=== PATIENT | male | born 1985 | race Two or more races ===

== ENCOUNTER 2024-09-30 12:32 | Emergency (ER) | payer MEDICAID, SELFPAY ==
--- NOTE | 2024-09-30 12:37 | EDNOTE_ITS ---
ED Extremity Problem RME/HPI General Stated complaint: RT KNEE PAIN Time Seen by Provider: 09/30/24 12:37 Arrival date/time: 09/30/24 12:32 RME / HPI RME / HPI Narrative: This section includes all my notes and documentations, including HPI, PE, and ED course.? Jimmie Aragon MD HPI: 39-year-old male here to be evaluated with right knee injury just prior to arrival. While getting up in a sitting position on floor, he heard and felt a right knee popping sensation. And he cannot bear weight and reports pain and swelling. No other complaints. ROS: All negative except as documented in HPI. Physical Exam: General:? Alert and oriented.??In obvious pain. Eyes:? Conjunctivae and lids clear.?? ENT:? No nasal congestion.?? Neck:? Supple.?? Lungs:? No respiratory distress.?? Legs:? No clubbing, cyanosis, edema. Skin:? Warm and dry.?? Neuro:? Alert and oriented X 3.?? Right Knee: Equivocal bony tenderness. Moderate edema. Limited range of motion due to pain. I reviewed all diagnostic test results. My interpretation of the knee x-rays is no acute fracture. At this point, diagnoses include?right knee sprain. Treatment here included?knee immobilizer and crutches and ibuprofen and two Tylenol #3 and lidocaine patch. Recommended more outpatient care. Based on my best medical judgment, made decision no further evaluation or treatment indicated at this time.? Patient understands and agrees to the discharge instructions customized and printed, see below. Discharge Instructions from Dr. Aragon: --After evaluation, there is no evidence of any broken bone. --You sprained your knee.? This means small tears to your soft structures, such as ezyiprm-jyuwyei-sozgwtgcs-cartilage.? --To help the healing process, minimal weight bearing (knee immobilizer and crutches) and elevate above waist level for 3 days as much as possible.?? --Apply ice for 20 minutes every 2-3 hours today and tomorrow.? --Take Ibuprofen 800 mg every 6-8 hours today and tomorrow to help decrease swelling then as needed.? Lidocaine patches and Tylenol with codeine as needed. --Most importantly, see a private doctor on 10/01/2024 for recheck and further care. If you are not better, you will need more care not available here in the ER--such as MRI imaging, bone scan, physical therapy, and a referral to see a specialist.? To make sure you don't have major tears needing surgery--cannot see big tears on x-rays.?? --Seek immediate medical care with any concerns.?? Jimmie Aragon MD Related Data Home Medications ?Medication ?Instructions ?Recorded ?Confirmed buspirone 15 mg tablet 15 mg PO BID 06/15/18 fluoxetine 40 mg capsule 40 mg PO QDAY 06/15/18 Previous Rx's ?Medication ?Instructions ?Recorded albuterol sulfate 90 mcg/actuation 2 puff inhalation Q6H PRN 06/15/18 aerosol inhaler (ProAir HFA) shortness of breath #8.5 grams acetaminophen 300 mg-codeine 30 mg 2 tab PO TID PRN pain #20 tabs 09/30/24 tablet ibuprofen 800 mg tablet 800 mg PO Q8H PRN pain #30 tabs 09/30/24 lidocaine 5 % topical patch 2 patch topical QDAY PRN pain #30 09/30/24 (Lidoderm) ea Allergies Allergy/AdvReac Type Severity Reaction Status Date / Time No Known Allergies Allergy Verified 05/13/19 21:55 Review of Systems Review of Systems Systems Reviewed: All systems reviewed, normal except as documented Past Medical History Past Medical History CARDIAC: Negative Congestive Heart Failure RESPIRATORY: Negative Chronic Obstructive Pulmonary Disease (COPD) GENITOURINARY: Negative Renal Disease ENDOCRINE: Negative Diabetes Mellitus Type 1 or Diabetes Mellitus Type 2 Social History SMOKING STATUS: Never smoker ED Exam Narrative Physical exam: As noted in HPI Course Quality Measures none Orders Category Date Time Status Apply knee immobilizer NOW Care 09/30/24 14:58 Active Crutches .NOW Care 09/30/24 14:58 Active Miscellaneous Nursing Order NOW Care 09/30/24 12:39 Active XR knee RT 3V Stat Exams 09/30/24 13:47 Completed ACETAMINOPHEN w/COD 300-30 [Tylenol w/Cod #3] Med 09/30/24 12:37 Discontinued 2 tab PO X1 ONE Ibuprofen Tab [Motrin Tab] Med 09/30/24 12:37 Discontinued 800 mg PO X1 ONE Lidocaine 5% Patch Med 09/30/24 12:37 Discontinued 1 patch TOP X1 ONE Vital Signs Vital signs: Vital Signs Temperature 98.8 F 09/30/24 13:01 Pulse Rate 85 09/30/24 13:01 Respiratory Rate 17 09/30/24 13:01 Blood Pressure 164/98 H 09/30/24 13:01 Pulse Oximetry (%) 95 09/30/24 13:01 Oxygen Delivery Method Room Air 09/30/24 13:01 Pulse ox is 95% on room air which is adequate. Extremity Problem Patient data External records reviewed:: [facility] previous records (I reviewed UC visit on 05/13/2019) and EMS form Clinical information provided by:: patient and EMS Social determinants that could affect healthcare access:: none Patient has the following chronic illnesses:: Asthma How is presenting disease/condition affected by chronic disease/condition?: uneffected by Evaluation data The following diagnostics were reviewed and interpreted by me:: radiology exam(s) Lab and/or radiology exams considered but not ordered:: None Interpretation Summary: Right knee sprain Medications / Prescriptions Medications or Prescriptions considered but not ordered:: None Medication administrations:: Medication Administration History Discontinued Medications Acetaminophen/Codeine Phosphate (Acetaminophen W/Cod 300-30 Tablet) 2 tab PO X1 ONE Stop: 09/30/24 12:38 Last Admin: 09/30/24 14:53 Dose: 2 tab Documented By: CARLTON Ibuprofen (Ibuprofen Tab 400 Mg Tablet) 800 mg PO X1 ONE Stop: 09/30/24 12:38 Last Admin: 09/30/24 14:53 Dose: 800 mg Documented By: CARLTON Lidocaine (Lidocaine 5% 1 Patch) 1 patch TOP X1 ONE Stop: 09/30/24 12:38 Last Admin: 09/30/24 14:54 Dose: 1 patch Documented By: CARLTON Comments: applied to right knee Ibuprofen and two Tylenol #3 and lidocaine patch Consultations Consultation(s) initiated? (list below): No Diagnosis Extremity Problem Differential Diagnosis: other (Right knee fracture/contusion/sprain/strain) Most likely diagnosis given after review of the tests above:: Right knee sprain Admission Indicated Admission indicated?: not indicated Explain why admission is indicated or not indicated:: Admission criteria not met Admission Request Was there a request for admission?: No Disposition Plan Disposition Plan: Discharge Discharge Attestation Discharge Attestation: The patient and all family members were given an opportunity to ask questions and understood the discharge instructions. Discharge instructions specifically effects, indications for sooner follow up or return to the emergency department, and the expected course of current diagnosis. Patient condition: Stable Discharge Plan Plan Patient Disposition: HOME (Self Care) Prescriptions/Referrals Prescriptions/Med Rec: New ibuprofen 800 mg tablet 800 mg PO Q8H PRN (Reason: pain) Qty: 30 0RF acetaminophen-codeine 300-30 mg tablet 2 tab PO TID MDD 6 PRN (Reason: pain) Qty: 20 0RF lidocaine [Lidoderm] 5 % adhesive patch,medicated 2 patch topical QDAY PRN (Reason: pain) Qty: 30 0RF Rx Instructions: leave on most painful area for up to 12 hrs No Action fluoxetine 40 mg capsule 40 mg PO QDAY buspirone 15 mg tablet 15 mg PO BID albuterol sulfate [ProAir HFA] 90 mcg/actuation HFA aerosol inhaler 2 puff INH Q6H PRN (Reason: shortness of breath) Qty: 8.5 0RF Referrals: Salbador Snow MD [Primary Care Provider] - In 1 week Problem List Clinical Impression: Right knee sprain Patient/Caregiver Discharge Instructions Education Materials: ED Knee Sprain Additional Instructions: Discharge Instructions from Dr. Aragon: --After evaluation, there is no evidence of any broken bone. --You sprained your knee.? This means small tears to your soft structures, such as wmvlnlj-rpiyqwo-hdeuauptc-cartilage.? --To help the healing process, minimal weight bearing (knee immobilizer and crutches) and elevate above waist level for 3 days as much as possible.?? --Apply ice for 20 minutes every 2-3 hours today and tomorrow.? --Take Ibuprofen 800 mg every 6-8 hours today and tomorrow to help decrease swelling then as needed.? Lidocaine patches and Tylenol with codeine as needed. --Most importantly, see a private doctor on 10/01/2024 for recheck and further care. If you are not better, you will need more care not available here in the ER--such as MRI imaging, bone scan, physical therapy, and a referral to see a specialist.? To make sure you don't have major tears needing surgery--cannot see big tears on x-rays.?? --Seek immediate medical care with any concerns.?? Print Language: [place] Stand Alone Forms: Kenna Award Info., Patient Portal Info Letter
[2024-09-30 13:01] VITALS: BP 164/98; PULSE 85; RESP 17; TEMP 37.1; O2SAT 95
[2024-09-30 13:10] VITALS: PULSE 84; RESP 18; O2SAT 98; BMI 30.4
--- NOTE | 2024-09-30 13:47 | XR_ITS ---
Examination: Knee, right , 3 views Technique: Knee AP, lateral, oblique 3 views Date and time of exam: September 30, 2024 1405 hours INDICATIONS: Injury to the knee today with the pain. FINDINGS: Adequate bone density. Widening of the medial joint space on the oblique view No fracture No opaque foreign body IMPRESSION: Suspicious for strain or incompetence of the medial collateral ligament, consider elective MRI knee without contrast follow-up No fracture
[2024-09-30] MEDS: ACETAMINOPHEN w/COD 300-30 TABLET 2 TAB PO (14:53)
[2024-09-30] MEDS: IBUPROFEN TAB 400 MG TABLET 800 MG PO (14:53)
[2024-09-30] MEDS: LIDOCAINE 5% 1 PATCH TOP (14:54)
== END 2024-09-30 15:58 | disposition home or self-care (01) ==
PROVIDERS: Emergency Provider Emergency Medicine; PCP Family Medicine
DX: S83.91XA Sprain of unspecified site of right knee, initial encounter (principal); X58.XXXA Exposure to other specified factors, initial encounter
CPT/HCPCS: 73562; 99283; A9270

== ENCOUNTER → 2024-10-27 | Outpatient (CLI) | payer MEDICAID, SELFPAY ==
--- NOTE | 2024-10-27 07:00 | XR_ITS ---
Exam: MRI knee without contrast, right Date and time of exam: October 27, 2024 0720 hours INDICATIONS: Lateral posterior knee pain one month post injury instability knee chinmay Technique: Multiple axial, coronal, and sagittal sections on the knee have been obtained. T2-Weighted sagittal, fat-suppressed images, TR 3,500, TE 62, T2 weighted coronal fat-saturated images, TR 3,500, TE 62 Proton density sagittal sections, TR 1800, TE 31. T-1 weighted coronal images, TR 524, TE 13.0 Findings: Medial meniscus anterior horn intact. Medial meniscus, body is intact. Posterior horn medial meniscus peripheral horizontal linear tear. Lateral meniscus anterior horn horizontal linear tear Lateral meniscus, body is intact Posterior horn lateral meniscus is intact Anterior cruciate ligament moderate to high-grade sprain Posterior cruciate ligament appears intact. Knee effusion is small. Quadriceps and patellar tendons appear intact. There is no evidence of tendinosis. Inflammatory change or fracture of Hoffa's fat pad is not seen. Medial patellar facet demonstrates moderate thinning. Lateral patellar facet cartilage demonstrates mild thinning. Trochlear cartilage demonstrates mild thinning. Marrow signal adequate. Medial collateral ligament appears intact. No meniscocapsular separation is seen. Illiotibial band and fibular collateral ligament are intact. Biceps femoris tendons appear intact. Medial femoral condylar articular cartilage demonstrates mild thinning. Lateral femoral condylar articular cartilage demonstratesmild thinning. Tibial plateau cartilage demonstrates mild thinning. Impression: Moderate to high-grade sprain anterior cruciate ligament Tears of the posterior horn medial meniscus and anterior horn lateral meniscus
== END | disposition home or self-care (01) ==
PROVIDERS: Referring Provider Physician Assistant Medical; Visit Provider Physician Assistant Medical
DX: S83.511A Sprain of anterior cruciate ligament of right knee, initial encounter (principal); S83.241A Other tear of medial meniscus, current injury, right knee, initial encounter; S83.281A Other tear of lateral meniscus, current injury, right knee, initial encounter; X58.XXXA Exposure to other specified factors, initial encounter
CPT/HCPCS: 73721

== ENCOUNTER 2024-11-28 13:41 | Outpatient (RCR) | payer MEDICAID, SELFPAY ==
--- NOTE | 2024-11-28 14:40 | PTNOTE_ITS ---
PT OP Initial Eval Patient Information Outpatient Physical Therapy Treatment Date: 11/28/24 Visit Reasons: right knee pain Medical Diagnosis: [id number] Treatment Dx #1: Right Knee Pain Start of Care: 11/28/24 Date of Onset: 2 months ago Smoking Status Smoking Status: Never smoker Initial Assessment Subjective: Pt is a 39 y/o male reports of right knee pain (12/01) after he injured his knee 2 months ago. Pt's MRI showed torn meniscus and high grade ACL sprain. Pt has limitation with standing, walking, work duties, chores, self care, and performing recreational activities. Objective: Right Knee AROM: 0 deg to 130 deg with pain Right Knee MMTs: grossly 4-/5 Right Hip MMTs: grossly 3+/5 Special Test (+) Yasmin (+) pro Assessment: Pt demonstrate right knee pain and weakness consistent with MRI findings leading to difficulty with ADLs. Pt will not benefit from physical therapy at this time. Recommend ortho consult prior to attempting physical therapy safely, thank you for your referrals. 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
== END 2024-12-22 23:59 | disposition home or self-care (01) ==
LOC: CPTX 13:41
PROVIDERS: PCP Physician Assistant Medical; Referring Provider Physician Assistant Medical; Visit Provider Physician Assistant Medical
DX: M25.561 Pain in right knee (principal); R26.2 Difficulty in walking, not elsewhere classified; R53.1 Weakness; S83.281D Other tear of lateral meniscus, current injury, right knee, subsequent encounter; X58.XXXD Exposure to other specified factors, subsequent encounter
CPT/HCPCS: 97162